=== PATIENT | male | born 1945 | race Caucasian/White ===

== ENCOUNTER 2024-03-16 10:10 | Emergency (ER) | payer OTHER ==
[~2024-03-16] VITALS: Ht 188 cm; Wt 94.0 kg
[2024-03-16 10:17] VITALS: O2SAT 99
[2024-03-16 15:28] LABS: BASOPHILS % 0.3 % (0.0-2.0); EOSINOPHILS % 2.5 % (0.0-5.0); HEMATOCRIT. 29.8 % (42.0-52.0); HEMOGLOBIN. 9.8 g/dL (14.0-18.0); LYMPHOCYTES % 15.1 % (20.0-50.0); MEAN CORPUSCULAR HEMOGLOBIN 26.7 pg (28.0-32.0); MEAN CORPUSCULAR HGB CONC 32.9 g/dL (31.0-37.0); MEAN CORPUSCULAR VOLUME 81.1 fL (80.0-94.0); MEAN PLATELET VOLUME 9.1 fl (7.4-10.4); MONOCYTES % 13.2 % (2.0-8.0); NEUTROPHILS % 68.9 % (40.0-76.0); PLATELET 165 x1000/uL (130-400); RED BLOOD CELL COUNT 3.68 mill/uL (4.7-6.1); RED CELL DISTRIBUTION WIDTH 18.9 % (11.6-14.6); WHITE BLOOD COUNT 6.7 x1000/uL (4.5-11.0)
[2024-03-16 15:42] VITALS: BP 119/56; PULSE 75; RESP 15; TEMP 36.72516; O2SAT 96
[2024-03-16 15:54] LABS: CHLORIDE 99 mEq/L (98-107); POTASSIUM 3.1 mEq/L (3.5-5.1); SODIUM 137 mEq/L (136-145)
[2024-03-16 15:55] LABS: CALCIUM 9.1 mg/dL (8.7-10.4); CARBON DIOXIDE 28 mEq/L (21-32); FOLIC ACID (FOLATE) SERUM > 20.00 ng/mL (>5.38); VITAMIN B12 SERUM 589 pg/mL (211-911)
[2024-03-16 15:59] LABS: IRON 26 ug/dL (65-175)
[2024-03-16 16:00] LABS: CREATININE 1.9 mg/dL (0.6-1.3); GLUCOSE 150 mg/dL (70-105); TRIGLYCERIDE 53 mg/dL (0-150); TROPONIN I HIGH SENSITIVITY 16 ng/L (3.0-53); UREA NITROGEN BLOOD 93 mg/dL (9-23)
[2024-03-16 16:01] LABS: LDL CHOLESTEROL 59 mg/dL (5-100)
[2024-03-16 16:02] LABS: CHOLESTEROL 126 mg/dL (<200); HDL CHOLESTEROL 48 mg/dL (>55); TOTAL IRON BINDING CAPACITY 374 ug/dl (250-425)
[2024-03-16 16:05] LABS: T4 FREE 1.08 ng/dL (0.89-1.76); THYROID STIMULATING HORMONE 4.59 uIU/mL (0.55-4.78)
[2024-03-16 16:07] LABS: ETHANOL BLOOD < 10 mg/dL (<10)
== END 2024-03-16 16:21 | disposition short-term general hospital (02) ==
LOC: ER 10:10 → EDBEDREQTM 12:49 → EDBEDREQ 12:49 → CANBEDREQ 13:10 → ER 16:21
DX: R07.9 Chest pain, unspecified (principal); E87.70 Fluid overload, unspecified
CPT/HCPCS: 36415; 71045; 80048; 80061; 80320; 82607; 82746; 83036; 83540; 83550; 83880; 84439; 84443; 84484; 85025; 85379; 93005; 99285; G0480